=== PATIENT | male | born 1960 | race American Indian/Alaskan Native ===

== ENCOUNTER 2017-03-29 05:49 | Inpatient (IN) | payer MEDICAID ==
[2017-03-29 05:50] VITALS: BMI 31.8
[2017-03-29] MEDS ORDERED: Magnesium Hydroxide Susp 30 ml UD PO PRN (06:46)
[2017-03-29] MEDS ORDERED: DiphenhydrAMINE 50 mg/ml Inj IM PRN (06:46)
--- NOTE | 2017-03-29 07:03 | ED PDOC ---
Psych Transfer Clearance - Clearance Statement Clearance Statement: Reviewed vital signs, lab results and transfer papers. Patient clinically stable for psychiatric admission.
--- NOTE | 2017-03-29 07:07 | PCM.BM ---
<Mariposa Rodriguez - Last Filed: 03/29/17 07:05> Treatment Plan Problems - Problems identified on initial assessmt hopelessness/helplessness Date Initiated: 03/29/17 Time Initiated: 07:05 Assessment reference: NA Status: Active feeling of worthlessness Date Initiated: 03/29/17 Time Initiated: 07:06 Assessment reference: NA Status: Active Treatment assets and liabiliti Patient Assests: cooperative, ADL independent, negotiates basic needs, cognitively intact Patient Liabilities: physical pain, substance abuse, medical problems - Milieu Protocol Maintain good personal hygiene: daily Encourage regular showers, daily Remind patient to perform daily oral care, daily Assist patient to perform ADL's Maintain personal safety: every shift Educate patient to report safety concerns to staff, every shift Monitor environment for contraband/sharps Medication safety: Monitor for expected outcome, potential side effects: every shift, Assess barriers to learning: every shift, Assess readiness for medication education: every shift <Meagan Goldstein - Last Filed: 03/29/17 10:41> - Diagnosis (1) Schizoaffective disorder Status: Chronic Interventions: Medication management, Individual and group therapy, psychoeducation 03/29/17 10 :41 <Primitivo Arizmendi - Last Filed: 03/30/17 09:34> Family Contact Family contact: Patient declines to allow family contact at present (Pt resides with sister, but is not agreeable to have staff contact her.) - Goals for Treatment Patient goals for treatment: Pt wants to feel less depressed and safe. Discharge/Continuing Care - Education Needs Education Needs: Patient Medication, Patient Coping Skills, Patient Anger Management skills, Patient Community resources - Discharge Discharge Criteria: Tolerates medication w/o severe side effects, Free of Suicidal thoughts, Free of agitation, Normal sleep pattern, No longer exhibiting s/s of withdrawal Discharge to:: Home, With Family - Treatment Team Participation Discussed with Family/SO: No Was Patient/Family/SO present at Treatment Team Meeting: Yes
[2017-03-29 07:11] VITALS: O2SAT 98
--- NOTE | 2017-03-29 10:46 | PCM.PSYCH ---
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 Reports non-compliance with medications in the context of chronic alcohol abuse (drinks 2-3 pints/day). He gave conflicting stories to which medications he has recently taken. As per chart, he was discharged from [facility] in December 2016 on Seroquel 300 mg PO HS, Zoloft 200 mg, Trazodnoe 100 mg PO HS. He reports vague suicidal ideation, with no clear plan, but will not contract for safety. +AH of his decreased brother. Denies delusions/paranoia. +Hopelessness. +Sleep/appetite disturbances. Patient currently feels "shakey" from not drinking ETOH and just received an Ativan PRN. PMHx: Sickle cell anemia, AVN both hips, Hyper IgE syndrome, S/p R nephrectomy secondary to renal cell carcinoma PPHx: Multiple past psychiatric hospitalization for depression, etoh abuse, most recent diagnosis: schizoaffective disorder. Patient may has history of malingering to obtain inpatient hospitalizations. Not compliant with outpatient tx. FHx: Brother commited suicide SHx: Lives w/ sister and nieces. . On disability ALL: Augmentin, Ketorolac, PCN, tomato Current Medications: Active Medications Generic Name Dose Route Start Last Admin Trade Name Freq PRN Reason Stop Dose Admin Acetaminophen 650 mg 03/29/17 06:46 Tylenol 325mg Tab PO Q4 PRN pain 4-7 Chlordiazepoxide 50 mg 03/29/17 17:00 Librium PO Q8 GOPAL Diphenhydramine HCl 50 mg 03/29/17 06:46 Benadryl IM Q6 PRN Extrapyramidal S/S Unable PO Diphenhydramine HCl 50 mg 03/29/17 06:46 Benadryl PO Q6 PRN Extrapyramidal Symptoms Diphenhydramine HCl 50 mg 03/29/17 06:46 Benadryl PO HS PRN Sleep Folic Acid 1 mg 03/29/17 10:45 Folic Acid PO DAILY GOPAL Haloperidol 5 mg 03/29/17 06:46 Haldol PO Q4 PRN Agitation Haloperidol Lactate 5 mg 03/29/17 06:46 Haldol IM Q4 PRN Agitation, Unable to Take PO Lorazepam 2 mg 03/29/17 06:46 Ativan IM Q4 PRN Anxiety/Agitation,Unable PO Lorazepam 2 mg 03/29/17 06:46 03/29/17 08:45 Ativan PO 2 mg Q4 PRN Administration Anxiety/Agitation Magnesium Hydroxide 30 ml 03/29/17 06:46 Milk Of Magnesia PO HS PRN Constipation Past Psychiatric History - Past Psychiatric History Previous Treatment History: Inpatient Pertinent Medical Hx (Current Medical&Sleep Prob, Allergies): Allergies Allergy/AdvReac Type Severity Reaction Status Date / Time amoxicillin trihydrate Allergy RASH Verified 03/28/17 20:19 [From Augmentin] ketorolac tromethamine Allergy RASH Verified 03/28/17 20:19 [From Toradol] Penicillins Allergy RASH Verified 03/28/17 20:19 potassium clavulanate Allergy RASH Verified 03/28/17 20:19 [From Augmentin] tomato Allergy Verified 03/28/17 20:19 Folic Acid 1 mg PO DAILY #30 tab 02/24/16 HYDROmorphone [Dilaudid] 4 mg PO Q6 #14 tab 02/24/16 [place] Carbonate [[place] Carbonate 150MG] 450 mg PO BID 14 Days cap 02/24/16 QUEtiapine [SEROquel] 400 mg PO BID 14 Days tab 02/24/16 Zolpidem [Ambien] 5 mg PO HS PRN #0 tab 02/24/16 oxyCODONE/Acetaminophen [Percocet 5/325 mg Tab] 1 tab PO Q6 PRN #14 tab Benztropine [Cogentin] 1 mg PO BID #60 tab 08/10/16 Divalproex [Depakote DR(*BID*)] 500 mg PO BID #60 tcp 08/10/16 Haloperidol [Haldol] 10 mg PO BID #60 tab 08/10/16 Gabapentin [Neurontin] 600 mg PO BID #60 tab 10/27/16 Mirtazapine [Remeron] 30 mg PO HS #30 tab 10/27/16 fluPHENAZine [Prolixin] 10 mg PO BID #60 tab 10/27/16 traZODone [Desyrel] 100 mg PO HS PRN #30 tab 10/27/16 Albuterol/Ipratropium [Duoneb 3 mg/0.5 mg (3 ml) UD] 3 ml INH RQ6 PRN #1 Pantoprazole [Protonix EC Tab] 40 mg PO DAILY #14 ect 12/22/16 Sertraline [Zoloft] 100 mg PO BID #30 tab 12/22/16 Review of Systems - Psychiatric Psychiatric: As Per HPI, Abnormal Sleep Pattern, Auditory Hallucinations, Change in Appetite, Depression, Hopelessness, Suicidal Ideation Mental Status Examination - Personal Presentation Personal Presentation: Looks older than stated age - Affect Affect: Constricted - Motor Activity Motor Activity: Calm - Reliability in Providing Information Reliability in Providing Information: Other (Poor, due to intentional withholding of information, likely lying) - Speech Speech: Organized - Mood Mood: Depressed - Formal Thought Process Formal Thought Process: Hallucinations - Hallucinations/Delusions Hallucinations: Auditory - Obsessions/Compulsions Obsessions: No Compulsions: No - Cognitive Functions Orientation: Person, Place, Situation, Time Sensorium: Alert, Drowsy Attention/Concentration: Attentive Judgement: Imparied, as evidence by: Other (chronic poor judgement re: substance abuse, may be malingering) Memory: Recent intact, as evidence by: Ability to recall events of the day - Risk Risk: Suicidal, Diminished functioning DSM 5 DX - DSM 5 DSM 5 Diagnosis: Schizoaffective Disorder - Recommended/Plan of Treatment Treatment Recommendations and Plan of Treatment: Schizoaffective Disorder, r/o MDD w/ psychosis, r/o Bipolar disorder w/ psychosis; r/o seeking hospitalization for secondary gain -Admit to psychiatry -Restart Zoloft 200 mg PO Daily, Seroquel 300 mg PO HS -Librium for ETOH w/ drawal -Medicine consult -Individual and group therapy -Obtain collateral history -Disposition planning -1:1 for safety/ suicide precautions Projected ELOS: 3-5 days Discharge Plan and Discharge Criteria: Discharge when psychiatrically stable
--- NOTE | 2017-03-29 15:05 | CP.PCM.CON ---
History of Present Illness - History of Present Illness History of Present Illness: Reason for Medicine Consult: As per Hospital Protocol HPI: 56 y/o overweight male patient with PMH of Sickle cell anemia, AVN both hips, Hyper IgE syndrome, S/p R nephrectomy secondary to renal cell carcinoma in 2013 , depression, and schizoaffective disorder comes to the hospital for psych and medical evaluation. As per pt, he feels pain everywhere in his body, he has AVN of hips since then he is depended on pain medications and unable to ambulate without crutches. pt is a chronic alcohol abuser, and wants something to help with his pain. He reports vague suicidal ideation, with no clear plan. Patient currently feels "shakey" from not drinking ETOH and just received an Ativan PRN. pt denies any fever, chills, n/v, chest pain, SOB or abdo pain. PMHx: Sickle cell anemia, AVN both hips, Hyper IgE syndrome, S/p R nephrectomy secondary to renal cell carcinoma PPHx: Multiple past psychiatric hospitalization for depression, etoh abuse, most recent diagnosis: schizoaffective disorder. Patient may has history of malingering to obtain inpatient hospitalizations. Not compliant with outpatient tx. FHx: Brother commited suicide, DAD- HTN, MOM- head tumor SHx: Alcohol use everyday, 6cig/day smoking, no illicit drug use, Lives w/ sister and nieces. . On disability Allg: PCN and toradol VS: reviewed Review of Systems - Review of Systems All systems: reviewed and no additional remarkable complaints except Review of Systems: pain - Constitutional Constitutional: absent: Fever - EENT Eyes: As Per HPI - Cardiovascular Cardiovascular: absent: Chest Pain, Dyspnea, Edema - Respiratory Respiratory: absent: Cough, Dyspnea, Hemoptysis, Wheezing - Gastrointestinal Gastrointestinal: absent: Abdominal Pain - Genitourinary Genitourinary: absent: Change in Urinary Stream, Flank Pain, Hematuria - Musculoskeletal Musculoskeletal: As Per HPI - Integumentary Integumentary: Change in Pigmentation - Neurological Neurological: absent: Abnormal Hearing, Abnormal Speech Past Patient History - Infectious Disease Hx of Infectious Diseases: None - Tetanus Immunizations Tetanus Immunization: Unknown - Past Medical History & Family History Past Medical History?: Yes - Past Social History Smoking Status: Heavy Smoker > 10 Cigarettes Daily - CARDIAC Hx Hypertension: Yes - PULMONARY Hx Pneumonia: Yes - NEUROLOGICAL Hx Seizures: Yes (ETOH related) - HEENT Hx HEENT Problems: Yes Other/Comment: Uses glasses for far/near sight. - RENAL Hx Chronic Kidney Disease: Yes Hx Kidney Stones: Yes - ENDOCRINE/METABOLIC Hx Endocrine Disorders: No - HEMATOLOGICAL/ONCOLOGICAL Hx Blood Disorders: Yes Hx Sickle Cell Disease: Yes - INTEGUMENTARY Hx Dermatological Problems: No Other/Comment: Hyper IgE syndrome - MUSCULOSKELETAL/RHEUMATOLOGICAL Hx Musculoskeletal Disorders: Yes Hx Arthritis: Yes Hx Falls: Yes Hx Fractures: Yes (Left Femur FX/ Repair.) - GASTROINTESTINAL Hx Gastrointestinal Disorders: Yes Hx Pancreatitis: Yes - GENITOURINARY/GYNECOLOGICAL Hx Genitourinary Disorders: No Hx Sexually Transmitted Disorders: No - PSYCHIATRIC Hx Substance Use: No - SURGICAL HISTORY Hx Surgeries: Yes Hx Kidney Transplant: (right) Hx Orthopedic Surgery: Yes Other/Comment: R kidney cancer removed September 2015 - ANESTHESIA Hx Anesthesia: Yes Hx Anesthesia Reactions: Yes Hx Malignant Hyperthermia: No Meds Allergies/Adverse Reactions: Allergies Allergy/AdvReac Type Severity Reaction Status Date / Time amoxicillin trihydrate Allergy RASH Verified 03/28/17 20:19 [From Augmentin] ketorolac tromethamine Allergy RASH Verified 03/28/17 20:19 [From Toradol] Penicillins Allergy RASH Verified 03/28/17 20:19 potassium clavulanate Allergy RASH Verified 03/28/17 20:19 [From Augmentin] tomato Allergy Verified 03/28/17 20:19 - Medications Medications: Current Medications Acetaminophen (Tylenol 325mg Tab) 650 mg PO Q4 PRN PRN Reason: pain 4-7 Chlordiazepoxide (Librium) 25 mg PO Q6 [facility] Last Admin: 03/29/17 13:06 Dose: 25 mg Diphenhydramine HCl (Benadryl) 50 mg IM Q6 PRN PRN Reason: Extrapyramidal S/S Unable PO Diphenhydramine HCl (Benadryl) 50 mg PO Q6 PRN PRN Reason: Extrapyramidal Symptoms Diphenhydramine HCl (Benadryl) 50 mg PO HS PRN PRN Reason: Sleep Folic Acid (Folic Acid) 1 mg PO DAILY [facility] Last Admin: 03/29/17 12:32 Dose: 1 mg Haloperidol (Haldol) 5 mg PO Q4 PRN PRN Reason: Agitation Haloperidol Lactate (Haldol) 5 mg IM Q4 PRN PRN Reason: Agitation, Unable to Take PO Lorazepam (Ativan) 2 mg IM Q4 PRN PRN Reason: Anxiety/Agitation,Unable PO Lorazepam (Ativan) 2 mg PO Q4 PRN PRN Reason: Anxiety/Agitation Last Admin: 03/29/17 08:45 Dose: 2 mg Magnesium Hydroxide (Milk Of Magnesia) 30 ml PO HS PRN PRN Reason: Constipation Quetiapine Fumarate (Seroquel) 300 mg PO HS GOPAL Sertraline HCl (Zoloft) 200 mg PO DAILY GOPAL Physical Exam - Head Exam Head Exam: ATRAUMATIC, NORMAL INSPECTION, NORMOCEPHALIC - Eye Exam Eye Exam: EOMI, Normal appearance, PERRL Pupil Exam: NORMAL ACCOMODATION, PERRL - ENT Exam ENT Exam: Mucous Membranes Moist, Normal Exam - Neck Exam Neck exam: Positive for: Normal Inspection. Negative for: Tenderness - Respiratory Exam Respiratory Exam: Clear to Auscultation Bilateral, NORMAL BREATHING PATTERN - Cardiovascular Exam Cardiovascular Exam: REGULAR RHYTHM, +S1, +S2 - GI/Abdominal Exam GI & Abdominal Exam: Normal Bowel Sounds, Soft. absent: Distended, Guarding, Tenderness - Extremities Exam Extremities exam: Positive for: calf tenderness, normal capillary refill, pedal pulses present. Negative for: joint swelling, pedal edema Additional comments: b/l hip tenderness - Back Exam Back exam: absent: CVA tenderness (L), CVA tenderness (R) - Neurological Exam Neurological exam: Alert, CN II-XII Intact, Oriented x3 - Psychiatric Exam Psychiatric exam: Flat Affect - Skin Skin Exam: Dry, Intact, Normal Color, Warm Results - Vital Signs Recent Vital Signs: Last Vital Signs Temp 98 F 03/29/17 06:41 Pulse 90 03/29/17 08:00 Resp 20 03/29/17 08:00 BP 156/98 H 03/29/17 06:41 Pulse Ox 98 03/29/17 06:41 Assessment & Plan - Assessment and Plan (Free Text) Assessment: A/P: 56 y/o overweight male patient with PMH of Sickle cell anemia, AVN both hips, Hyper IgE syndrome, S/p R nephrectomy secondary to renal cell carcinoma in 2013 , depression, and schizoaffective disorder comes to the hospital for psych and medical evaluation. HTN - chronic, uncontrolled - Continue home med Vasotec 20 mg PO daily, as per pt Sickle cell anemia / AVN b/l hips - continue home meds - Percocet 10mg Q4H PRN - Folic acid 1mg PO daily Hyper IgE syndrome/ itchy skin/ face rash - Benadryl 50mg PO Q6 PRN for itchy skin - Topical Lidex 0.05% cream BID PRN for face eczema Chronic Alcohol use - Librium 25mg PO Q6H Depression - continue management as per psych schizoaffective disorder -continue management as per psych S/p right right nephrectomy - localized RCC - Resolved DVT ppx - SCD - Date & Time Date: 03/29/17 Time: 14:20
[2017-03-29] MEDS ORDERED: Oxycodone/Acetaminophen 5/325 mg Tab PO PRN (16:04)
[2017-03-29] MEDS: Oxycodone/Acetaminophen 5/325 mg Tab PO PRN ×2 (17:21→22:19)
[2017-03-30] MEDS: Oxycodone/Acetaminophen 5/325 mg Tab PO PRN ×3 (02:55→16:19)
[2017-03-30 07:17] LABS: T4 7.98 ug/dl (5.5-11.0)
[2017-03-30 07:31] LABS: THYROID STIMULATING HORMONE 2.2 mIU/ML (0.46-4.68)
[2017-03-30 08:22] LABS: IRON 91 ug/dL (49-181)
--- NOTE | 2017-03-30 08:30 | PCM.PYCHPN ---
Psychiatric Progress Note - Psychiatric Progress Note Patient seen today, length of contact: Patient evaluated, case discussed with team, chart reviewed, 35 min Patient Chief Complaint: "I'm depressed" Problems Identified/Issues Discussed: Patient reports that he continues to feel depressed. He reports that he last heard auditory hallucinations last night. He was able to contract for safety and denied current ideation to harm self or others. He was focused on prolonging his hospitalization, when told he will likely be discharged in a few days. He denies ETOH withdrawal symptoms. We discussed continued titration of Seroquel and continued tapering of Librium. Patient reports that he was previously on Seroquel 300 mg PO Q12. No adverse effects to medications noted. DSM 5 Symptoms Update: Schizoaffective Disorder, Alcohol Use Disorder Medication Change: Yes (Increase Seroquel to 100 mg PO AM/ 300 mg PO HS) Medical Record Reviewed: Yes Consults ordered or reviewed: Medicine consult appreciated Mental Status Examination - Cognitive Function Orientation: Person, Place, Situation, Time Memory: Intact Attention: WNL Concentration: WNL Association: WNL Fund of Knowledge: WNL - Mood Mood: Depressed - Affect Affect: Constricted - Speech Speech: Appropriate - Formal Thought Process Formal Thought Process: Hallucinations Psychotic Thoughts and Behaviors: +AH - Suicidal Ideation Suicidal Ideation: No - Homicidal Ideation Homicidal Ideation: No Goal/Treatment Plan - Goal/Treatment Plan Need for Continued Stay: Remain at risks for inpatient hospitalization, Severe depression anxiety, Discharge may exacerbated symptoms Progress Toward Problem(s) and Goals/Treatment Plan: Alcohol Use Disorder, Schizoaffective Disorder, r/o MDD w/ psychosis, r/o Bipolar disorder w/ psychosis; r/o seeking hospitalization for secondary gain -Continue Zoloft 200 mg PO Daily -Increase Seroquel to 100 mg AM/300 mg PO HS -Taper Librium for ETOH w/ drawal, no current signs/symptoms of ETOH w/drawal -Medicine consult appreciated -Individual and group therapy -Obtain collateral history -Disposition planning -Discontinue 1:1 as patient can contract for safety at this time -Psychoeducation provided re: importance of compliance with medications, treatment and ETOH cessation -Patient declined nicotine replacement Estimated Date of D/C: 04/01/17 - Smoking Cessation Smoking Cessation Initiated: No Reason for not providing: Patient declined
[2017-03-30 13:21] LABS: FOLATE 8.8 ng/mL
[2017-03-31] MEDS: Oxycodone/Acetaminophen 5/325 mg Tab PO PRN ×4 (00:16→16:57)
--- NOTE | 2017-03-31 08:25 | PCM.PYCHPN ---
Psychiatric Progress Note - Psychiatric Progress Note Patient seen today, length of contact: Patient evaluated, case discussed with team, chart reviewed, 35 min Patient Chief Complaint: "I'm depressed" Problems Identified/Issues Discussed: Patient reports that his mood is improving. No current ideation to harm self. No current auditory hallucinations. No signs/symptoms of ETOH w/drawal. No adverse effects to medications noted. Medication Change: Yes (Modify Seroquel to 200 mg PO Q12, Taper Librium) Medical Record Reviewed: Yes Consults ordered or reviewed: Medicine consult, Dietary consult Mental Status Examination - Cognitive Function Orientation: Person, Place, Situation, Time Memory: Intact Attention: WNL Concentration: WNL Association: WNL Fund of Knowledge: WNL - Mood Mood: Depressed - Affect Affect: Constricted - Speech Speech: Appropriate - Formal Thought Process Formal Thought Process: No Impairment Psychotic Thoughts and Behaviors: No AH/VH/paranoia/delusions - Suicidal Ideation Suicidal Ideation: No - Homicidal Ideation Homicidal Ideation: No Goal/Treatment Plan - Goal/Treatment Plan Need for Continued Stay: Remain at risks for inpatient hospitalization, Severe depression anxiety, Discharge may exacerbated symptoms Progress Toward Problem(s) and Goals/Treatment Plan: Alcohol Use Disorder, Schizoaffective Disorder, r/o MDD w/ psychosis, r/o Bipolar disorder w/ psychosis; r/o seeking hospitalization for secondary gain; patient is improving clinically. -Continue Zoloft 200 mg PO Daily -Modify Seroquel to 200 mg PO Q12 -Continue Trazodone 50 mg PO HS -Taper Librium for ETOH w/ drawal, no current signs/symptoms of ETOH w/drawal -Medicine consult appreciated -Dietary consult appreciated -Individual and group therapy -Obtain collateral history -Disposition planning- likely discharge tomorrow if patient continues to improve clinically -No 1:1 indicated -Psychoeducation provided re: importance of compliance with medications, treatment and ETOH cessation -Patient declined nicotine replacement Estimated Date of D/C: 04/01/17 - Smoking Cessation Smoking Cessation Initiated: No Reason for not providing: Patient declined
[2017-03-31] MEDS ORDERED: Petrolatum UD PAK TOP PRN (14:23)
[2017-04-01] MEDS: Oxycodone/Acetaminophen 5/325 mg Tab PO PRN ×2 (03:29→08:21)
[2017-04-01 06:57] VITALS: BP 94/56; PULSE 82; RESP 21; TEMP 97
--- NOTE | 2017-04-01 08:58 | PCM.PYCHDC ---
Mental Status Examination - Mental Status Examination Orientation: Person, Place, Situation, Time Memory: Intact Mood: Neutral Affect: Broad Speech: Appropriate Attention: WNL Concentration: WNL Association: WNL Fund of Knowledge: WNL Formal Thought Process: No Impairment Description of patient's judgement and insight: Fair I/J Psychotic Thoughts and Behaviors: No AH/VH/paranoia/delusions Suicidal Ideation: No Current Homicidal Ideation?: No Discharge Summary - Discharge Note Reason for Hospitalization: HPI: 56 yo AAM, , unemployed, on disability and living with his sister and 2 nieces, aged 17 and 19, 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 Reports non-compliance with medications in the context of chronic alcohol abuse (drinks 2-3 pints/day). He gave conflicting stories to which medications he has recently taken. As per chart, he was discharged from [facility] in December 2016 on Seroquel 300 mg PO HS, Zoloft 200 mg, Trazodnoe 100 mg PO HS. He reports vague suicidal ideation, with no clear plan, but will not contract for safety. +AH of his decreased brother. Denies delusions/paranoia. +Hopelessness. +Sleep/appetite disturbances. Patient currently feels "shakey" from not drinking ETOH and just received an Ativan PRN. PMHx: Sickle cell anemia, AVN both hips, Hyper IgE syndrome, S/p R nephrectomy secondary to renal cell carcinoma PPHx: Multiple past psychiatric hospitalization for depression, etoh abuse, most recent diagnosis: schizoaffective disorder. Patient may has history of malingering to obtain inpatient hospitalizations. Not compliant with outpatient tx. FHx: Brother commited suicide SHx: Lives w/ sister and nieces. . On disability ALL: Augmentin, Ketorolac, PCN, tomato Consultations:: List each consultation separately and include: 1. Reason for request. 2. Findings. 3. Follow-up Consultations: Medicine consult, Dietary consult Summary of Hospital Course include:: 1. Description of specific treatment plan utilized for patients during their course of treatmen. 2. Summarize the time- course for resolution of acute symptoms and/or regressed behaviors. 3. Describe issues identified and worked on during hospitalization. 4. Describe medication utilized. 5. Describe medical problems identified and treated. 6. Reassessment of suicide risk Summary of Hospital Course: Patient admitted to the psychiatry unit. Individual and group therapy were provided. The patient was stabilized on Zoloft 200 mg PO Daily, Seroquel 200 mg PO BID and Trazodone 50 mg PO HS. He is no longer an acute danger to himself. NO AH/VH/paranoia/delusions/SI/HI. - Diagnosis (1) Schizoaffective disorder Current Visit: No Status: Chronic - Final Diagnosis (DSM 5) Condition upon Discharge: STABLE DSM 5: Alcohol Use Disorder, Schizoaffective Disorder Disposition: HOME/ ROUTINE Follow-up Treatment Plan: Alcohol Use Disorder, Schizoaffective Disorder, r/o MDD w/ psychosis, r/o Bipolar disorder w/ psychosis; r/o seeking hospitalization for secondary gain; patient is now psychiatrically stable for discharge. -Continue Zoloft 200 mg PO Daily -Continue Seroquel 200 mg PO Q12 -Continue Trazodone 50 mg PO HS -Stop Librium for ETOH w/ drawal, no current signs/symptoms of ETOH w/drawal -Medicine consult appreciated -Dietary consult appreciated -Individual and group therapy -Psychoeducation provided re: importance of compliance with medications, treatment and ETOH cessation -Patient declined nicotine replacement Prescriptions/Medication Reconciliation: Enalapril Maleate [Vasotec] 20 mg PO DAILY #30 tab QUEtiapine [SEROquel] 200 mg PO Q12 #60 tab Sertraline [Zoloft] 200 mg PO DAILY #60 tab traZODone [Desyrel] 50 mg PO HS #30 tab - Smoking Cessation Smoking Cessation Medication prescribed: No Reason for not providing: Patient declined - Antipsychotic Medications Pt discharged on 2 or more routine antipsychotic medications: No
== END 2017-04-01 13:49 | disposition home or self-care (01) | DRG 430 ==
LOC: H.ER 05:49 → H.STEP 06:00
PROVIDERS: ADMIT Psychiatry & Neurology Psychiatry; ATTEND Psychiatry & Neurology Psychiatry
PROC: GZHZZZZ Group Psychotherapy (ICD-10-PCS; principal; 2017-03-29)
PROC: HZ56ZZZ Individual Psychotherapy for Substance Abuse Treatment, Psychoeducation (ICD-10-PCS; 2017-03-29)
DX: F25.9 Schizoaffective disorder, unspecified (principal); D82.4 Hyperimmunoglobulin E [IgE] syndrome; D57.1 Sickle-cell disease without crisis; R45.851 Suicidal ideations; M87.9 Osteonecrosis, unspecified; Z91.14 Patient's other noncompliance with medication regimen; Z88.0 Allergy status to penicillin; Z91.19 Patient's noncompliance with other medical treatment and regimen; Z85.528 Personal history of other malignant neoplasm of kidney; E66.3 Overweight; Z68.27 Body mass index [BMI] 27.0-27.9, adult; F17.210 Nicotine dependence, cigarettes, uncomplicated; L30.9 Dermatitis, unspecified; Z72.89 Other problems related to lifestyle

== ENCOUNTER 2018-03-26 06:27 | Inpatient (IN) | payer MEDICAID ==
--- NOTE | 2018-03-26 08:32 | ED PDOC ---
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 Patient expressed suicidal thoughts and states he hears voices because of brother's anniversary. PDM: non provided Past Medical History Reviewed: Historical Data, Nursing Documentation, Vital Signs Vital Signs: Last Vital Signs Temp 98.2 F 03/26/18 06:46 Pulse 101 H 03/26/18 06:46 Resp 18 03/26/18 06:46 BP 143/75 03/26/18 06:46 Pulse Ox 98 03/26/18 06:46 - Medical History PMH: Anxiety, Arthritis, Bipolar Disorder, Depression, Fractures (Left Femur FX / Repair.), HTN, Kidney Stones, Pancreatitis, Personality Disorder, Pneumonia, Chronic Kidney Disease, Seizures (ETOH related), Sickle Cell Disease Denies: Diabetes, Hepatitis, HIV, Schizophrenia, Sexually Transmitted Disease - Surgical History Surgical History: No Surg Hx - Family History Family History: States: Unknown Family Hx - Social History Current smoker - smoking cessation education provided: Yes (Heavy smoker) Alcohol: Social - Immunization History Hx Tetanus Toxoid Vaccination: Yes Hx Influenza Vaccination: Yes Hx Pneumococcal Vaccination: Yes - Home Medications Home Medications: Ambulatory Orders Medication Instructions Recorded Folic Acid 1 mg PO DAILY #30 tab 02/24/16 QUEtiapine [SEROquel] 200 mg PO Q12 #60 tab 04/01/17 Sertraline [Zoloft] 200 mg PO DAILY #60 tab 04/01/17 traZODone [Desyrel] 50 mg PO HS #30 tab 04/01/17 Divalproex [Depakote DR] 500 mg PO BID #60 tcp 02/23/18 Enalapril Maleate [Vasotec] 20 mg PO DAILY #30 tab 02/23/18 QUEtiapine [SEROquel] 200 mg PO HS #30 tab 02/23/18 Sertraline [Zoloft] 100 mg PO DAILY #30 tab 02/23/18 traZODone [Desyrel] 100 mg PO HS #30 tab 02/23/18 - Allergies Allergies/Adverse Reactions: Allergies Allergy/AdvReac Type Severity Reaction Status Date / Time amoxicillin trihydrate Allergy RASH Verified 03/26/18 06:45 [From Augmentin] FISH Allergy RASH Verified 03/26/18 06:45 ketorolac tromethamine Allergy RASH Verified 03/26/18 06:45 [From Toradol] Penicillins Allergy RASH Verified 03/26/18 06:45 potassium clavulanate Allergy RASH Verified 03/26/18 06:45 [From Augmentin] Review of Systems ROS Statement: Except As Marked, All Systems Reviewed And Found Negative Psych: Positive for: Other (Suicidal thoughts and hearing voices) Physical Exam - Reviewed Nursing Documentation Reviewed: Yes Vital Signs Reviewed: Yes - Physical Exam Appears: Positive for: No Acute Distress Head Exam: Positive for: ATRAUMATIC, NORMOCEPHALIC Skin: Positive for: Normal Color, Warm, Dry Eye Exam: Positive for: Normal appearance, EOMI, PERRL Neck: Positive for: Normal, Painless ROM, Supple Cardiovascular/Chest: Positive for: Regular Rate, Rhythm. Negative for: Murmur Respiratory: Positive for: Normal Breath Sounds. Negative for: Respiratory Distress Gastrointestinal/Abdominal: Positive for: Normal Exam, Soft. Negative for: Tenderness Back: Positive for: Normal Inspection. Negative for: L CVA Tenderness, R CVA Tenderness Extremity: Positive for: Normal ROM. Negative for: Tenderness, Swelling Neurologic/Psych: Positive for: Alert, Oriented (x3) - Laboratory Results Result Diagrams: 03/26/18 09:57 03/26/18 09:57 - ECG O2 Sat by Pulse Oximetry: 98 (RA) Pulse Ox Interpretation: Normal Medical Decision Making Medical Decision Making: Time: 825 Initial Plan: --EKG --Alcohol Serum --CMP --Urine drug screen --Troponin I --CBC --Chest x-ray 914 Chest x-ray FINDINGS: LUNGS: Mild chronic interstitial changes are seen. Heart is unchanged. No appreciable new focal infiltrate, pneumothorax, or pleural effusion is seen. PLEURA: No significant pleural effusion identified, no pneumothorax apparent. CARDIOVASCULAR: Normal. OSSEOUS STRUCTURES: No significant abnormalities. VISUALIZED UPPER ABDOMEN: Normal. OTHER FINDINGS: None. IMPRESSION: Limited study due to obliquity of the radiograph. No appreciable focal infiltrate Medically stable for psychiatric admission ----- Scribe Attestation: Documented by Maria E Amaya, acting as a scribe for John Paul Banda MD. Provider Scribe Attestation: All medical record entries made by the Scribe were at my direction and personally dictated by me. I have reviewed the chart and agree that the record accurately reflects my personal performance of the history, physical exam, medical decision making, and the department course for this patient. I have also personally directed, reviewed, and agree with the discharge instructions and disposition. Disposition - Clinical Impression Clinical Impression: Schizoaffective disorder - Patient ED Disposition Is Patient to be Admitted: Yes - Disposition Disposition Time: 12:22 Condition: FAIR Forms: [employer] ([place]) - Pt Status Changed To: Hospital Disposition Of: Inpatient - Admit Certification Admit to Inpatient:: After my assessment, the patient will require hospitalization for at least two midnights. This is because of the severity of symptoms shown, intensity of services needed, and/or the medical risk in this patient being treated as an outpatient. - POA Present On Arrival: None
--- NOTE | 2018-03-26 09:17 | RAD ---
Date of service: 03/26/2018 HISTORY: cough COMPARISON: 02/22/2016 FINDINGS: LUNGS: Mild chronic interstitial changes are seen. Heart is unchanged. No appreciable new focal infiltrate, pneumothorax, or pleural effusion is seen. PLEURA: No significant pleural effusion identified, no pneumothorax apparent. CARDIOVASCULAR: Normal. OSSEOUS STRUCTURES: No significant abnormalities. VISUALIZED UPPER ABDOMEN: Normal. OTHER FINDINGS: None. IMPRESSION: Limited study due to obliquity of the radiograph. No appreciable focal infiltrate
[2018-03-26 10:10] LABS: BASO # 0.1 K/uL (0.0-0.2); BASO % 0.8 % (0.0-2.0); EOS # 0.2 K/uL (0.0-0.7); EOS % 1.8 % (0.0-4.0); HEMOGLOBIN 12.8 g/dL (12.0-18.0); LYMPH % 16.8 % (20.0-40.0); MEAN CELL VOLUME 88.5 fl (80.0-94.0); MEAN CORPUSCULAR HEMOGLOBIN 29.6 pg (27.0-31.0); MEAN CORPUSCULAR HGB CONC 33.4 g/dL (33.0-37.0); MEAN PLATELET VOLUME 7.9 fl (7.2-11.7); MONO # 1.7 K/uL (0.0-0.8); MONO % 14.9 % (0.0-10.0); NEUT # 7.7 K/uL (1.8-7.0); NEUT % 65.7 % (50.0-75.0); NRBC % 0.1 % (0.0-0.0); RBC 4.33 Mil/uL (4.40-5.90); RED CELL DISTRIBUTION WIDTH 14.7 % (11.5-14.5); WHITE BLOOD COUNT 11.7 K/uL (4.8-10.8)
[2018-03-26 10:26] LABS: ALB/GLOB RATIO 1.1 (1.0-2.1); ALT/SGPT 38 U/L (21-72); AST/SGOT 34 U/L (17-59); BLOOD UREA NITROGEN 14 mg/dl (9-20); CALCIUM 8.7 mg/dL (8.4-10.2); GFR NON-AFRICAN AMERICAN > 60
[2018-03-26 12:45] LABS: BARBITURATES, UR NEGATIVE (NEGATIVE)
[2018-03-26 12:46] LABS: BENZODIAZEPINES, UR POSITIVE (NEGATIVE); PHENCYCLIDINE, UR NEGATIVE (NEGATIVE)
[2018-03-26 13:04] LABS: OPIATES, UR POSITIVE (NEGATIVE)
[2018-03-26 13:47] VITALS: O2SAT 99
[2018-03-26 14:36] VITALS: BMI 29.9
[2018-03-26] MEDS: Multivitamin With Minerals Tab PO SCH (17:14)
[2018-03-26] MEDS ORDERED: Potassium Chloride 20 mEq ER Tab PO ONE (19:55)
--- NOTE | 2018-03-27 00:17 | PCM.BM ---
<IshaanFranklin colbert - Last Filed: 03/27/18 00:15> Treatment Plan Problems - Problems identified on initial assessmt Hopelessness/Helplessness Date Initiated: 03/27/18 Time Initiated: 00:15 Assessment reference: NA Status: Active Altered Sleeping Patterns Date Initiated: 03/27/18 Time Initiated: 00:15 Assessment reference: NA Status: Active Medication nonadherence Date Initiated: 03/27/18 Time Initiated: 00:16 Assessment reference: NA Status: Active Self Care Deficit Date Initiated: 03/27/18 Time Initiated: 00:16 Assessment reference: NA Status: Active Suicidal Ideation Date Initiated: 03/27/18 Time Initiated: 00:17 Assessment reference: NA Status: Active Defensive Coping Date Initiated: 03/27/18 Time Initiated: 00:17 Assessment reference: NA Status: Active Treatment assets and liabiliti Patient Assests: cooperative, self-reliant, ADL independent, negotiates basic needs, cognitively intact Patient Liabilities: live alone, financial problems, poor support system, substance abuse, medical problems - Milieu Protocol Maintain good personal hygiene: every shift Encourage regular showers, every shift Remind patient to perform daily oral care, every shift Assist patient to perform ADL's Maintain personal safety: daily Educate patient to report safety concerns to staff, daily Monitor environment for contraband/sharps Medication safety: Monitor for expected outcome, potential side effects: daily, Assess barriers to learning: daily, Assess readiness for medication education: daily <Meagan Goldstein - Last Filed: 03/27/18 11:27> - Diagnosis (1) Schizoaffective disorder Status: Chronic Interventions: Medication management, Individual and group therapy, Psychoeducation 03/27/18 11:28 (2) Alcohol abuse Status: Chronic Interventions: Medication management, Individual and group therapy, Psychoeducation 03/27/18 11:28 (3) Opioid abuse Status: Acute Interventions: Medication management, Individual and group therapy, Psychoeducation 03/27/18 11:28 <Primitivo Arizmendi - Last Filed: 03/29/18 09:54> Family Contact Family involvement: Famliy/SO not involved Family contact: Patient declines to allow family contact at present Family contact name: Pt denied. Family contact comment: Pt has a sister that he reportedly resides with in [place], yet is adamant that staff not contact her. - Goals for Treatment Patient goals for treatment: Pt reported he would like withdrawl syptoms to be resolved and his depression and hallucinations decreased. Discharge/Continuing Care - Education Needs Education Needs: Patient Medication, Patient Diagnosis/Disease Process, Patient Coping Skills, Patient Community resources, Patient Aftercare Safety Plan - Discharge Discharge Criteria: Tolerates medication w/o severe side effects, Free of Suicidal thoughts, Free of agitation, Normal sleep pattern, Reduction of target symptoms Discharge to:: Home - Treatment Team Participation Patient/Family/SO Statement: 03/29/18 09:49 Pt seen in treatment team on 03/27/18. Pt reported that he "got something bad" and that is why he came to the hospital. Pt later explained that he thinks that his cocaine was laced with heroin, but then reported he uses 4 bags of heroin daily. Pt reported he is currently experienced withdrawals, and wanted to rest. Discussed with Family/SO: No Was Patient/Family/SO present at Treatment Team Meeting: Yes
--- NOTE | 2018-03-27 06:43 | CARD ---
APPROVED REPORT Date of service: 03/26/2018 EKG Measurement Heart [id number] <Conclusion> Sinus rhythm with premature supraventricular complexes Septal infarct, age undetermined Abnormal ECG
[2018-03-27 07:03] LABS: LDL CHOLESTEROL 66 mg/dL (0-129)
[2018-03-27 07:09] LABS: T4 8.27 ug/dl (5.5-11.0)
[2018-03-27 07:12] LABS: BLOOD UREA NITROGEN 16 mg/dl (9-20); CALCIUM 9.1 mg/dL (8.4-10.2); GFR NON-AFRICAN AMERICAN > 60; HDL CHOLESTEROL 32 MG/DL (30-70)
[2018-03-27] MEDS: Multivitamin With Minerals Tab PO SCH (08:52)
[2018-03-27] MEDS ORDERED: Multivitamin With Minerals Tab PO SCH (09:00)
--- NOTE | 2018-03-27 11:31 | PCM.PSYCH ---
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 Denies delusions/paranoia. +Hopelessness. +Sleep/appetite disturbances. PMHx: Sickle cell anemia, AVN both hips, Hyper IgE syndrome, S/p R nephrectomy secondary to renal cell carcinoma PPHx: Multiple past psychiatric hospitalization for depression, etoh/opioid abuse, most recent diagnosis: schizoaffective disorder. Reports compliance w/ Zoloft, Depakote and Seroquel. FHx: Brother commited suicide SHx: Lives w/ sister and nieces. . On disability; drinks 2 pints of rum daily; used 4 bags of heroin per day; smokes 1ppd ALL: Augmentin, Ketorolac, PCN, tomato Current Medications: Active Medications Generic Name Dose Route Start Last Admin Trade Name Freq PRN Reason Stop Dose Admin Chlordiazepoxide 25 mg 03/26/18 22:00 03/27/18 09:55 Librium PO 25 mg Q6 GOPAL Administration Clonidine HCl 0.1 mg 03/27/18 01:00 03/27/18 08:51 Catapres PO 03/30/18 01:01 0.1 mg Q8 GOPAL Administration Enalapril Maleate 20 mg 03/27/18 09:00 03/27/18 08:52 Vasotec PO 20 mg DAILY GOPAL Administration Folic Acid 1 mg 03/26/18 17:00 03/27/18 08:52 Folic Acid PO 1 mg DAILY GOPAL Administration Loperamide HCl 2 mg 03/27/18 00:24 Imodium PO Q4 PRN After Loose Bowel Movement Lorazepam 1 mg 03/26/18 20:08 Ativan PO Q8 PRN Anxiety Multivitamins/Minerals 1 tab 03/26/18 17:00 03/27/18 08:52 Therapeutic-M Tab PO 1 tab DAILY GOPAL Administration Thiamine HCl 100 mg 03/26/18 17:00 03/27/18 08:52 Vitamin B1 Tab PO 100 mg DAILY GOPAL Administration Past Psychiatric History - Past Psychiatric History Previous Treatment History: Inpatient Pertinent Medical Hx (Current Medical&Sleep Prob, Allergies): Allergies Allergy/AdvReac Type Severity Reaction Status Date / Time amoxicillin trihydrate Allergy RASH Verified 03/26/18 06:45 [From Augmentin] FISH Allergy RASH Verified 03/26/18 06:45 ketorolac tromethamine Allergy RASH Verified 03/26/18 06:45 [From Toradol] Penicillins Allergy RASH Verified 03/26/18 06:45 potassium clavulanate Allergy RASH Verified 03/26/18 06:45 [From Augmentin] Folic Acid 1 mg PO DAILY #30 tab 02/24/16 QUEtiapine [SEROquel] 200 mg PO Q12 #60 tab 04/01/17 Sertraline [Zoloft] 200 mg PO DAILY #60 tab 04/01/17 Enalapril Maleate [Vasotec] 20 mg PO DAILY #30 tab 02/23/18 Divalproex [Depakote DR] 1,000 mg PO BID 03/26/18 Review of Systems - Psychiatric Psychiatric: As Per HPI, Abnormal Sleep Pattern, Anhedonia, Anxiety, Auditory Hallucinations, Behavioral Changes, Change in Appetite, Depression, Difficulty Concentrating, Hopelessness, Irritability, Mood Swings, Suicidal Ideation Mental Status Examination - Personal Presentation Personal Presentation: Looks older than stated age - Affect Affect: Constricted, Depressed - Motor Activity Motor Activity: Calm - Reliability in Providing Information Reliability in Providing Information: Fair - Speech Speech: Organized - Mood Mood: Depressed, Anxious - Formal Thought Process Formal Thought Process: No Impairment Additional comments: +AH yesterday, none current - Obsessions/Compulsions Obsessions: No Compulsions: No - Cognitive Functions Orientation: Person, Place, Situation, Time Sensorium: Alert Attention/Concentration: Attentive Judgement: Imparied, as evidence by: Poor judgement Memory: Recent intact, as evidence by: Ability to recall events of the day, Remote intact, as evidenced by: Abilit to recall sig. life events, Remote intact , as evidenced by: Ability to recall historical events - Risk Risk: Suicidal, Diminished functioning - Strength & Assets Inventory Strength & Assets Inventory: Cooperative DSM 5 DX - DSM 5 DSM 5 Diagnosis: Schizoaffective Disorder; Alcohol Use Disorder; Opioid Use Disorder - Recommended/Plan of Treatment Treatment Recommendations and Plan of Treatment: Schizoaffective Disorder; Alcohol Use Disorder; Opioid Use Disorder -Admit to psychiatry unit -Psychoeducation provided on the dangers of substance abuse -Restart Zoloft, Seroquel and Depakote -Medicine consult -PT -Ativan to prevent ETOH withdrawal -PRNs for opioid withdrawal symptoms -Disposition planning Projected ELOS: 5-10 days Discharge Plan and Discharge Criteria: Discharge when patient is psychiatrically stable - Smoking Cessation Smoking Cessation Initiated: No Reason for not providing: Patient declined
[2018-03-27] MEDS: Divalproex 500 mg DR(BID formulation) PO SCH (16:14)
[2018-03-27] MEDS ORDERED: Oxycodone/Acetaminophen 5/325 mg Tab PO PRN (20:30)
--- NOTE | 2018-03-27 20:45 | CP.PCM.CON ---
History of Present Illness - History of Present Illness History of Present Illness: 57 y/o male with PMH IGE syndrome, sickle Cell anemia, History of renal cell Ca s/p right nephrectomy, bilateral avascular necrosis of the hip, Wheelchair bound ,Bipolar disorder , schizophrenia,hypertension , history ETOH and drug abuse with multiple psychiatric admissions was brought in for crisis eval by the police for suicidal attempt . Patient admitted to psych unit and medicine consulted History obtained from patient . He appears to be with flat affect and tearful . He states that has been compliant with his psychiatric medications but is feeling very depressed lately and suicidal , thinkingg about jumping in front of a moving train. Patient states that nothing has no meaning any longer.He denies any visual and auditory hallucinations. Denies any chest pain , SOB, palpitations, PND, orthopnea, urinary symptoms . Complains of bouts of diarrhea today . Gives history of recent xanax , cocaine and heroine use. Denies any fever , choills, nausea, vomiting , abdominal pain, weight gain or weight loss. Allergies ; Toradol, amoxicillin , PCN PMH ; IGE syndrome, sickle Cell anemia, History of renal cell Ca s/p right nephrectomy, bilateral avascular necrosis of the hip, Wheelchair bound,Bipolar disorder , schizophrenia,hypertension Medications; Sertraline, Percoset , azelastine,Cetirizine,Depakote, zoloft Surgery ; right nephrectomy Family history ; Brother committed suicide Social history ; Lives with his sister in [facility] , on disability , wheelchair bound, PMD ; None Code status; Full ROS ; 10 point review of system negative except above Review of Systems - Review of Systems All systems: reviewed and no additional remarkable complaints except Past Patient History - Infectious Disease Hx of Infectious Diseases: None - Tetanus Immunizations Tetanus Immunization: Unknown - Past Medical History & Family History Past Medical History?: Yes - Past Social History Alcohol: Social - CARDIAC Hx Hypertension: Yes - PULMONARY Hx Pneumonia: Yes - NEUROLOGICAL Hx Seizures: Yes (ETOH related) - HEENT Hx HEENT Problems: Yes Other/Comment: Uses glasses for far/near sight. - RENAL Hx Chronic Kidney Disease: Yes - ENDOCRINE/METABOLIC Hx Endocrine Disorders: No - HEMATOLOGICAL/ONCOLOGICAL Hx Human Immunodeficiency Virus (HIV): No Hx Sickle Cell Disease: Yes - INTEGUMENTARY Hx Dermatological Problems: No Other/Comment: Hyper IgE syndrome - MUSCULOSKELETAL/RHEUMATOLOGICAL Hx Arthritis: Yes Hx Falls: Yes Hx Fractures: Yes (Left Femur FX/ Repair.) - GASTROINTESTINAL Hx Pancreatitis: Yes - GENITOURINARY/GYNECOLOGICAL Hx Sexually Transmitted Disorders: No - PSYCHIATRIC Hx Bipolar Disorder: Yes Hx Depression: Yes Hx Schizophrenia: Yes Hx Substance Use: Yes - SURGICAL HISTORY Hx Surgeries: Yes Hx Orthopedic Surgery: Yes Other/Comment: R kidney cancer removed September 2015 - ANESTHESIA Hx Anesthesia: Yes Hx Anesthesia Reactions: Yes Hx Malignant Hyperthermia: No Meds Allergies/Adverse Reactions: Allergies Allergy/AdvReac Type Severity Reaction Status Date / Time amoxicillin trihydrate Allergy RASH Verified 03/26/18 06:45 [From Augmentin] FISH Allergy RASH Verified 03/26/18 06:45 ketorolac tromethamine Allergy RASH Verified 03/26/18 06:45 [From Toradol] Penicillins Allergy RASH Verified 03/26/18 06:45 potassium clavulanate Allergy RASH Verified 03/26/18 06:45 [From Augmentin] - Medications Medications: Current Medications Clonidine HCl (Catapres) 0.1 mg PO Q8 [facility] Stop: 03/30/18 01:01 Last Admin: 03/27/18 16:14 Dose: 0.1 mg Divalproex Sodium (Depakote Dr(*Bid*)) 500 mg PO BID [facility] Last Admin: 03/27/18 16:14 Dose: 500 mg Enalapril Maleate (Vasotec) 20 mg PO DAILY [facility] Last Admin: 03/27/18 08:52 Dose: 20 mg Folic Acid (Folic Acid) 1 mg PO DAILY [facility] Last Admin: 03/27/18 08:52 Dose: 1 mg Loperamide HCl (Imodium) 2 mg PO Q4 PRN PRN Reason: After Loose Bowel Movement Loperamide HCl (Imodium) 2 mg PO QID PRN PRN Reason: Diarrhea Lorazepam (Ativan) 1 mg PO Q8 PRN PRN Reason: Anxiety Lorazepam (Ativan) 1 mg PO TID [facility] Last Admin: 03/27/18 16:13 Dose: 1 mg Multivitamins/Minerals (Therapeutic-M Tab) 1 tab PO DAILY [facility] Last Admin: 03/27/18 08:52 Dose: 1 tab Ondansetron HCl (Zofran Tab) 4 mg PO Q6 PRN PRN Reason: Nausea/Vomiting Oxycodone/Acetaminophen (Percocet 5/325 Mg Tab) 1 tab PO Q6 PRN PRN Reason: Pain, severe (8-10) Stop: 03/30/18 20:31 Quetiapine Fumarate (Seroquel) 300 mg PO Q12 [facility] Last Admin: 03/27/18 16:13 Dose: 300 mg Sertraline HCl (Zoloft) 200 mg PO DAILY [facility] Last Admin: 03/27/18 16:14 Dose: 200 mg Thiamine HCl (Vitamin B1 Tab) 100 mg PO DAILY [facility] Last Admin: 03/27/18 08:52 Dose: 100 mg Physical Exam - Constitutional Appears: Non-toxic, No Acute Distress Additional comments: tearful - Head Exam Head Exam: ATRAUMATIC, NORMAL INSPECTION, NORMOCEPHALIC - Eye Exam Eye Exam: EOMI, Normal appearance, PERRL Pupil Exam: NORMAL ACCOMODATION - ENT Exam ENT Exam: Mucous Membranes Moist, Normal Exam - Neck Exam Neck exam: Positive for: Full Rom, Normal Inspection - Respiratory Exam Respiratory Exam: Clear to Auscultation Bilateral, NORMAL BREATHING PATTERN. absent: Rales, Rhonchi, Wheezes - Cardiovascular Exam Cardiovascular Exam: REGULAR RHYTHM, RRR, +S1, +S2. absent: JVD - GI/Abdominal Exam GI & Abdominal Exam: Normal Bowel Sounds, Soft. absent: Distended, Guarding, Rebound, Tenderness - Rectal Exam Rectal Exam: Deferred - Extremities Exam Extremities exam: Positive for: normal capillary refill, normal inspection, pedal pulses present. Negative for: calf tenderness, pedal edema - Back Exam Back exam: NORMAL INSPECTION - Neurological Exam Neurological exam: Alert, CN II-XII Intact, Oriented x3 - Psychiatric Exam Psychiatric exam: Depressed, Flat Affect - Skin Skin Exam: Dry, Intact, Normal Color, Warm Results - Vital Signs Recent Vital Signs: Last Vital Signs Temp 98.4 F 03/27/18 15:56 Pulse 78 03/27/18 16:14 Resp 20 03/27/18 15:56 BP 135/73 03/27/18 16:14 Pulse Ox 99 03/26/18 13:45 - Labs Result Diagrams: 03/26/18 09:57 03/27/18 06:00 Labs: Laboratory Results - last 24 hr 03/27/18 03/27/18 03/27/18 06:00 06:00 06:00 Sodium 139 Potassium 3.4 L Chloride 106 Carbon Dioxide 27 Anion Gap 9 L BUN 16 Creatinine 0.6 L Est GFR ( Amer) > 60 Est GFR (Non-Af Amer) > 60 Random Glucose 89 Hemoglobin A1c 5.0 Calcium 9.1 Triglycerides 176 H D Cholesterol 151 LDL Cholesterol Direct 66 HDL Cholesterol 32 Thyroxine (T4) 8.27 TSH 3rd Generation 0.82 RPR Nonreactive Assessment & Plan - Assessment and Plan (Free Text) Assessment: 57 y/o male with PMH IGE syndrome, sickle Cell anemia, History of renal cell Ca s/p right nephrectomy, bilateral avascular necrosis of the hip, Wheelchair bound ,Bipolar disorder , schizophrenia,hypertension , history ETOH and drug abuse with multiple psychiatric admissions was brought in for crisis eval by the police for suicidal attempt and ideation. 1. Bipolar depression management as per psychiatry 2. ETOH and multiple drug abuse ETOH level 76 Withdrawal precautions Ativan PRN, Clonidine Thiamine , folic acid supplements Counselled patient 3 HTN resume home meds vasotec 20 mg PO QD 4. Avascular necrosis/ chronic pain syndrome Percoset PRN for severe pain ( received his list of medication from his pharmacy )
--- NOTE | 2018-03-28 08:26 | PCM.PYCHPN ---
Psychiatric Progress Note - Psychiatric Progress Note Patient seen today, length of contact: Pt evaluated, case discussed w/ team, chart reviewed Patient Chief Complaint: "I was having thoughts of hurting myself." Problems Identified/Issues Discussed: Patient continues to be depressed w/ intermittent suicidal ideation w/o current plan/intent. He reports opioid withdrawal symptoms, including diarrhea. He feels hopeless w/ poor sleep and appetite. +Intermittent AH Medication Change: No Medical Record Reviewed: Yes Consults ordered or reviewed: Medicine consult Mental Status Examination - Cognitive Function Orientation: Person, Place, Situation, Time Memory: Intact Attention: WNL Concentration: WNL Association: [facility] Fund of Knowledge: [facility] Decription of patient's judgement and insights: Improving I/J - Mood Mood: Depressed, Anxious - Affect Affect: Constricted, Depressed - Formal Thought Process Formal Thought Process: Hallucinations Psychotic Thoughts and Behaviors: +Intermittent AH - Suicidal Ideation Suicidal Ideation: Yes Plan: No current plan/intent - Homicidal Ideation Homicidal Ideation: No Goal/Treatment Plan - Goal/Treatment Plan Need for Continued Stay: Remain at risks for inpatient hospitalization, Severe depression anxiety, Discharge may exacerbated symptoms Progress Toward Problem(s) and Goals/Treatment Plan: Schizoaffective Disorder; Alcohol Use Disorder; Opioid Use Disorder -Psychoeducation provided on the dangers of substance abuse -Continue Zoloft, Seroquel and Depakote -Medicine consult -PT -Ativan to prevent ETOH withdrawal; will taper gradually -PRNs for opioid withdrawal symptoms -Disposition planning Estimated Date of D/C: 03/28/18
[2018-03-28] MEDS: Multivitamin With Minerals Tab PO SCH (08:41)
[2018-03-28] MEDS: Divalproex 500 mg DR(BID formulation) PO SCH ×2 (08:42→21:05)
--- NOTE | 2018-03-29 08:12 | PCM.PYCHPN ---
Psychiatric Progress Note - Psychiatric Progress Note Patient seen today, length of contact: Pt evaluated, case discussed w/ team, chart reviewed Patient Chief Complaint: "I was having thoughts of hurting myself." Problems Identified/Issues Discussed: Patient continues to be depressed w/ intermittent suicidal ideation w/o current plan/intent. He denies current AH. He reports opioid withdrawal symptoms, including diarrhea and chills. He feels hopeless w/ poor sleep and appetite. No ETOH withdrawal symptoms. Medication Change: Yes (Taper Ativan) Medical Record Reviewed: Yes Consults ordered or reviewed: Medicine consult Mental Status Examination - Cognitive Function Orientation: Person, Place, Situation, Time Memory: Intact Attention: WNL Concentration: WNL Association: WNL Fund of Knowledge: [facility] Decription of patient's judgement and insights: Improving I/J - Mood Mood: Depressed, Anxious - Affect Affect: Constricted, Depressed - Formal Thought Process Formal Thought Process: No Impairment Psychotic Thoughts and Behaviors: NO AH/VH/paranoia/delusions - Suicidal Ideation Suicidal Ideation: Yes - Homicidal Ideation Homicidal Ideation: No Goal/Treatment Plan - Goal/Treatment Plan Need for Continued Stay: Remain at risks for inpatient hospitalization, Severe depression anxiety, Discharge may exacerbated symptoms Progress Toward Problem(s) and Goals/Treatment Plan: Schizoaffective Disorder; Alcohol Use Disorder; Opioid Use Disorder -Psychoeducation provided on the dangers of substance abuse -Continue Zoloft, Seroquel and Depakote -Medicine consult -PT -Ativan to prevent ETOH withdrawal; will taper gradually -PRNs for opioid withdrawal symptoms -Disposition planning Estimated Date of D/C: 04/03/18
[2018-03-29] MEDS ORDERED: Nasal Spray(Ocean spray) NAS PRN (08:58)
[2018-03-29] MEDS: Multivitamin With Minerals Tab PO SCH (09:20)
[2018-03-29] MEDS: Divalproex 500 mg DR(BID formulation) PO SCH ×2 (09:22→17:25)
--- NOTE | 2018-03-30 08:16 | PCM.PYCHPN ---
Psychiatric Progress Note - Psychiatric Progress Note Patient seen today, length of contact: Pt evaluated, case discussed w/ team, chart reviewed Patient Chief Complaint: "I was having thoughts of hurting myself." Problems Identified/Issues Discussed: Patient continues to be depressed w/ intermittent suicidal ideation w/o current plan/intent and intermittent AH. We discussed continued titration of Seroquel and tapering of Ativan. He continues to report opioid withdrawal symptoms, including diarrhea and chills. He feels hopeless w/ poor sleep and appetite. No ETOH withdrawal symptoms. Medication Change: Yes (Taper Ativan; Increase Seroquel) Medical Record Reviewed: Yes Consults ordered or reviewed: Medicine consult Mental Status Examination - Cognitive Function Orientation: Person, Place, Situation, Time Memory: Intact Attention: WNL Concentration: WNL Association: WNL Fund of Knowledge: [facility] Decription of patient's judgement and insights: Improving I/J - Mood Mood: Depressed, Anxious - Affect Affect: Constricted, Depressed - Formal Thought Process Formal Thought Process: Hallucinations Psychotic Thoughts and Behaviors: +Intermittent AH - Suicidal Ideation Suicidal Ideation: Yes - Homicidal Ideation Homicidal Ideation: No Goal/Treatment Plan - Goal/Treatment Plan Need for Continued Stay: Remain at risks for inpatient hospitalization, Severe depression anxiety, Discharge may exacerbated symptoms Progress Toward Problem(s) and Goals/Treatment Plan: Schizoaffective Disorder; Alcohol Use Disorder; Opioid Use Disorder -Psychoeducation provided on the dangers of substance abuse -Continue Zoloft and Depakote -Increase Seroquel -Medicine consult -PT -Ativan to prevent ETOH withdrawal; will taper gradually -PRNs for opioid withdrawal symptoms -Disposition planning Estimated Date of D/C: 04/04/18
[2018-03-30] MEDS: Multivitamin With Minerals Tab PO SCH (09:41)
[2018-03-30] MEDS: Divalproex 500 mg DR(BID formulation) PO SCH ×2 (09:41→17:32)
--- NOTE | 2018-03-31 08:22 | PCM.PYCHPN ---
Psychiatric Progress Note - Psychiatric Progress Note Patient seen today, length of contact: Pt evaluated, case discussed w/ team, chart reviewed Patient Chief Complaint: "I was having thoughts of hurting myself." Problems Identified/Issues Discussed: No new events overnight. No signs/symptoms of ETOH withdrawal. Patient continues to be depressed w/ intermittent suicidal ideation w/o current plan/ intent. He denies acute AH/VH/paranoia/delusions. He continues to report opioid withdrawal symptoms, including diarrhea and chills. He feels hopeless w / poor sleep. No adverse effects to medications reported. Medication Change: Yes (Stop Ativan) Medical Record Reviewed: Yes Consults ordered or reviewed: Medicine consult Mental Status Examination - Cognitive Function Orientation: Person, Place, Situation, Time Memory: Intact Attention: WNL Concentration: WNL Association: WNL Fund of Knowledge: [facility] Decription of patient's judgement and insights: Improving I/J - Mood Mood: Depressed, Anxious - Affect Affect: Constricted, Depressed - Formal Thought Process Formal Thought Process: No Impairment Psychotic Thoughts and Behaviors: No Acute AH/VH/paranoia/delusions - Suicidal Ideation Suicidal Ideation: Yes - Homicidal Ideation Homicidal Ideation: No Goal/Treatment Plan - Goal/Treatment Plan Need for Continued Stay: Remain at risks for inpatient hospitalization, Severe depression anxiety, Discharge may exacerbated symptoms Progress Toward Problem(s) and Goals/Treatment Plan: Schizoaffective Disorder; Alcohol Use Disorder; Opioid Use Disorder -Psychoeducation provided on the dangers of substance abuse -Continue Zoloft and Depakote -Continue Seroquel -Medicine consult -PT -Stop Ativan -PRNs for opioid withdrawal symptoms -Disposition planning Estimated Date of D/C: 04/04/18
[2018-03-31] MEDS: Divalproex 500 mg DR(BID formulation) PO SCH ×2 (08:50→16:16)
[2018-03-31] MEDS: Multivitamin With Minerals Tab PO SCH (08:51)
[2018-04-01] MEDS: Divalproex 500 mg DR(BID formulation) PO SCH ×2 (08:55→16:26)
[2018-04-01] MEDS: Multivitamin With Minerals Tab PO SCH (08:56)
--- NOTE | 2018-04-01 09:59 | PCM.PYCHPN ---
Psychiatric Progress Note - Psychiatric Progress Note Patient seen today, length of contact: Pt evaluated, case discussed w/ team, chart reviewed Patient Chief Complaint: "I was having thoughts of hurting myself." Problems Identified/Issues Discussed: Patient continues to be depressed w/ intermittent AH, but denies SI. He continues to report opioid withdrawal symptoms, including diarrhea and muscle aches. He reports difficulty sleeping at night. No adverse effects to medications reported. Medication Change: Yes (Increase Seroquel) Medical Record Reviewed: Yes Consults ordered or reviewed: Medicine consult Mental Status Examination - Cognitive Function Orientation: Person, Place, Situation, Time Memory: Intact Attention: WNL Concentration: WNL Association: WNL Fund of Knowledge: [facility] Decription of patient's judgement and insights: Improving I/J - Mood Mood: Depressed, Anxious - Affect Affect: Constricted, Depressed - Formal Thought Process Formal Thought Process: Hallucinations Psychotic Thoughts and Behaviors: +Intermittent AH - Suicidal Ideation Suicidal Ideation: No - Homicidal Ideation Homicidal Ideation: No Goal/Treatment Plan - Goal/Treatment Plan Need for Continued Stay: Remain at risks for inpatient hospitalization, Severe depression anxiety, Discharge may exacerbated symptoms Progress Toward Problem(s) and Goals/Treatment Plan: Schizoaffective Disorder; Alcohol Use Disorder; Opioid Use Disorder -Psychoeducation provided on the dangers of substance abuse -Continue Zoloft and Depakote -Increase Seroquel -Medicine consult -PT -Disposition planning Estimated Date of D/C: 04/04/18
[2018-04-02 07:53] LABS: BASO # 0.1 K/uL (0.0-0.2); BASO % 0.9 % (0.0-2.0); EOS # 0.3 K/uL (0.0-0.7); EOS % 4.8 % (0.0-4.0); HEMOGLOBIN 13.9 g/dL (12.0-18.0); LYMPH # 1.8 K/uL (1.0-4.3); LYMPH % 26.3 % (20.0-40.0); MEAN CELL VOLUME 89.3 fl (80.0-94.0); MEAN CORPUSCULAR HEMOGLOBIN 29.8 pg (27.0-31.0); MEAN CORPUSCULAR HGB CONC 33.4 g/dL (33.0-37.0); MEAN PLATELET VOLUME 8.3 fl (7.2-11.7); MONO # 2.2 K/uL (0.0-0.8); MONO % 30.9 % (0.0-10.0); NEUT # 2.6 K/uL (1.8-7.0); NEUT % 37.1 % (50.0-75.0); NRBC % 0.1 % (0.0-0.0); PLATELET COUNT 187 K/uL (130-400); RBC 4.68 Mil/uL (4.40-5.90); RED CELL DISTRIBUTION WIDTH 14.6 % (11.5-14.5)
[2018-04-02 08:21] LABS: ALT/SGPT 26 U/L (21-72); AST/SGOT 22 U/L (17-59); BLOOD UREA NITROGEN 17 mg/dl (9-20); CALCIUM 9.9 mg/dL (8.4-10.2); GFR NON-AFRICAN AMERICAN > 60
[2018-04-02] MEDS: Divalproex 500 mg DR(BID formulation) PO SCH ×2 (08:58→16:29)
[2018-04-02] MEDS: Multivitamin With Minerals Tab PO SCH (08:59)
--- NOTE | 2018-04-02 09:01 | PCM.PYCHPN ---
Psychiatric Progress Note - Psychiatric Progress Note Patient seen today, length of contact: Pt evaluated, case discussed w/ team, chart reviewed Patient Chief Complaint: Depression Problems Identified/Issues Discussed: Patient reports that he continues to feel depressed and anxious, but that his mood is starting to improve. He denies acute AH/VH/SI/HI. He denies opioid withdrawal symptoms. No adverse effects to medications reported. Diagnostic Results: VPA 39.2 on 04/02/18 Medication Change: No Medical Record Reviewed: Yes Consults ordered or reviewed: Medicine consult Mental Status Examination - Cognitive Function Orientation: Person, Place, Situation, Time Memory: Intact Attention: WNL Concentration: WNL Association: WNL Fund of Knowledge: [facility] Decription of patient's judgement and insights: Improving I/J - Mood Mood: Depressed, Anxious - Affect Affect: Constricted - Speech Speech: Appropriate - Formal Thought Process Formal Thought Process: No Impairment Psychotic Thoughts and Behaviors: No AH/VH/paranoia/delusions - Suicidal Ideation Suicidal Ideation: No - Homicidal Ideation Homicidal Ideation: No Goal/Treatment Plan - Goal/Treatment Plan Need for Continued Stay: Remain at risks for inpatient hospitalization, Severe depression anxiety, Discharge may exacerbated symptoms Progress Toward Problem(s) and Goals/Treatment Plan: Schizoaffective Disorder; Alcohol Use Disorder; Opioid Use Disorder -Psychoeducation provided on the dangers of substance abuse -Continue Zoloft and Depakote (VPA 39.2 on 04/02/18) -Continue Seroquel -Medicine consult -PT -Disposition planning Estimated Date of D/C: 04/04/18
[2018-04-02 09:14] LABS: EOSINOPHIL 2 % (0-7); LYMPHOCYTE 36 % (20-50); MONOCYTE 22 % (0-10); NEUTROPHIL 40 % (42-75); PLATELET ESTIMATE NORMAL (NORMAL); TOTAL CELLS COUNTED 100
--- NOTE | 2018-04-03 08:42 | PCM.PYCHPN ---
Psychiatric Progress Note - Psychiatric Progress Note Patient seen today, length of contact: Pt evaluated, case discussed w/ team, chart reviewed Patient Chief Complaint: Depression Problems Identified/Issues Discussed: Patient reports that his mood is improving. He denies acute AH/VH/SI/HI. Psychoeducation provided on the dangers of alcohol and opioid use and how it can affect mental health. Psychoeducation provided on the importance of compliance with treatment and medications. No adverse effects to medications reported. Diagnostic Results: VPA 39.2 on 04/02/18 Medication Change: No Medical Record Reviewed: Yes Consults ordered or reviewed: Medicine consult Mental Status Examination - Cognitive Function Orientation: Person, Place, Situation, Time Memory: Intact Attention: WNL Concentration: WNL Association: WNL Fund of Knowledge: [facility] Decription of patient's judgement and insights: Improving I/J - Mood Mood: Depressed - Affect Affect: Constricted - Speech Speech: Appropriate - Formal Thought Process Formal Thought Process: No Impairment Psychotic Thoughts and Behaviors: No AH/VH/paranoia/delusions - Suicidal Ideation Suicidal Ideation: No - Homicidal Ideation Homicidal Ideation: No Goal/Treatment Plan - Goal/Treatment Plan Need for Continued Stay: Discharge may exacerbated symptoms Progress Toward Problem(s) and Goals/Treatment Plan: Schizoaffective Disorder; Alcohol Use Disorder; Opioid Use Disorder; Patient is improving clinically, will likely discharge tomorrow. -Psychoeducation provided on the dangers of substance abuse -Continue Zoloft and Depakote (VPA 39.2 on 04/02/18) -Continue Seroquel -Medicine consult -Disposition planning Estimated Date of D/C: 04/04/18
[2018-04-03] MEDS: Divalproex 500 mg DR(BID formulation) PO SCH ×2 (09:19→18:08)
[2018-04-03] MEDS: Multivitamin With Minerals Tab PO SCH (09:19)
[2018-04-04 06:12] VITALS: BP 120/80; PULSE 87; RESP 19; TEMP 98.1
--- NOTE | 2018-04-04 08:28 | PCM.PYCHDC ---
Mental Status Examination - Mental Status Examination Orientation: Person, Place, Situation, Time Memory: Intact Mood: Neutral Affect: Broad Speech: Appropriate Attention: WNL Concentration: WNL Association: WNL Fund of Knowledge: WNL Formal Thought Process: No Impairment Description of patient's judgement and insight: Fair I/J Psychotic Thoughts and Behaviors: No AH/VH/paranoia/delusions Suicidal Ideation: No Current Homicidal Ideation?: No Discharge Summary - Discharge Note Reason for Hospitalization: HPI: 57 yo AAM, , unemployed, on disability and living with his sister and 2 nieces, aged 17 and 19, currently refusing to let designer/writer call his sister, presents w/ worsening depression w/ intermittent suicidal thoughts to jump in front of a train, w/ intermittent AH, in the context of alcohol, opioid and benzo abuse. Denies delusions/paranoia. +Hopelessness. +Sleep/appetite disturbances. PMHx: Sickle cell anemia, AVN both hips, Hyper IgE syndrome, S/p R nephrectomy secondary to renal cell carcinoma PPHx: Multiple past psychiatric hospitalization for depression, etoh/opioid abuse, most recent diagnosis: schizoaffective disorder. Reports compliance w/ Zoloft, Depakote and Seroquel. FHx: Brother commited suicide SHx: Lives w/ sister and nieces. . On disability; drinks 2 pints of rum daily; used 4 bags of heroin per day; smokes 1ppd ALL: Augmentin, Ketorolac, PCN, tomato Consultations:: List each consultation separately and include: 1. Reason for request. 2. Findings. 3. Follow-up Consultations: Medicine consult Summary of Hospital Course include:: 1. Description of specific treatment plan utilized for patients during their course of treatmen. 2. Summarize the time- course for resolution of acute symptoms and/or regressed behaviors. 3. Describe issues identified and worked on during hospitalization. 4. Describe medication utilized. 5. Describe medical problems identified and treated. 6. Reassessment of suicide risk Summary of Hospital Course: Patient admitted to the psychiatry unit. Individual and group therapy were provided. Patient was treated for opioid and alcohol withdrawal and safely tapered off Ativan. He was stabilized on Depakote 500 mg PO BID, Seroquel 300 mg PO AM/ 400 mg PO HS and Zoloft 200 mg PO Daily. Psychoeducation provided on the dangers of drug and etoh abuse. Patient denies acute depression/anxiety/psychosis/SI/HI. He is psychiatrically stable for discharge at this time. - Diagnosis (1) Schizoaffective disorder Current Visit: Yes Status: Chronic (2) Alcohol abuse Current Visit: No Status: Chronic (3) Opioid abuse Current Visit: Yes Status: Acute - Final Diagnosis (DSM 5) Condition upon Discharge: STABLE DSM 5: Schizoaffective Disorder; Alcohol Use Disorder; Opioid Use Disorder Disposition: HOME/ ROUTINE Follow-up Treatment Plan: Schizoaffective Disorder; Alcohol Use Disorder; Opioid Use Disorder -Psychoeducation provided on the dangers of substance abuse -Continue Zoloft and Depakote (VPA 39.2 on 04/02/18) -Continue Seroquel -Medicine consult -Discharge to home Prescriptions/Medication Reconciliation: Quetiapine Fumarate [Seroquel] 400 mg PO HS #30 tab - Smoking Cessation Smoking Cessation Medication prescribed: No Reason for not providing: Patient declined - Antipsychotic Medications Pt discharged on 2 or more routine antipsychotic medications: No
[2018-04-04] MEDS: Divalproex 500 mg DR(BID formulation) PO SCH (08:44)
[2018-04-04] MEDS: Multivitamin With Minerals Tab PO SCH (08:46)
[2018-04-04] MEDS ORDERED: Nasal Spray(Ocean spray) NAS PRN (12:03)
--- NOTE | 2018-04-05 10:15 | PCM.BM ---
Treatment Plan Problems - Problems identified on initial assessmt Hopelessness/Helplessness Date Initiated: 03/27/18 Time Initiated: 00:15 Assessment reference: NA Status: Active Altered Sleeping Patterns Date Initiated: 03/27/18 Time Initiated: 00:15 Assessment reference: NA Status: Active Medication nonadherence Date Initiated: 03/27/18 Time Initiated: 00:16 Assessment reference: NA Status: Active Self Care Deficit Date Initiated: 03/27/18 Time Initiated: 00:16 Assessment reference: NA Status: Active Suicidal Ideation Date Initiated: 03/27/18 Time Initiated: 00:17 Assessment reference: NA Status: Active Defensive Coping Date Initiated: 03/27/18 Time Initiated: 00:17 Assessment reference: NA Status: Active Treatment assets and liabiliti Patient Assests: cooperative, self-reliant, ADL independent, negotiates basic needs, cognitively intact Patient Liabilities: live alone, financial problems, poor support system, substance abuse, medical problems - Milieu Protocol Maintain good personal hygiene: every shift Encourage regular showers, every shift Remind patient to perform daily oral care, every shift Assist patient to perform ADL's Maintain personal safety: daily Educate patient to report safety concerns to staff, daily Monitor environment for contraband/sharps Medication safety: Monitor for expected outcome, potential side effects: daily, Assess barriers to learning: daily, Assess readiness for medication education: daily Milieu Narrative: Schizoaffective Disorder; Alcohol Use Disorder; Opioid Use Disorder -Psychoeducation provided on the dangers of substance abuse -Continue Zoloft and Depakote (VPA 39.2 on 04/02/18) -Continue Seroquel -Medicine consult -Discharge to home Family Contact Family involvement: Famliy/SO not involved Family contact: Patient declines to allow family contact at present Family contact name: Pt denied. Family contact comment: Pt has a sister that he reportedly resides with in [place], yet is adamant that staff not contact her. - Goals for Treatment Patient goals for treatment: Pt reported he would like withdrawl syptoms to be resolved and his depression and hallucinations decreased. Discharge/Continuing Care - Education Needs Education Needs: Patient Medication, Patient Diagnosis/Disease Process, Patient Coping Skills, Patient Community resources, Patient Aftercare Safety Plan - Discharge Discharge Criteria: Tolerates medication w/o severe side effects, Free of Suicidal thoughts, Free of agitation, Normal sleep pattern, Reduction of target symptoms Discharge to:: Home - Treatment Team Participation Patient/Family/SO Statement: Schizoaffective Disorder; Alcohol Use Disorder; Opioid Use Disorder -Psychoeducation provided on the dangers of substance abuse -Continue Zoloft and Depakote (VPA 39.2 on 04/02/18) -Continue Seroquel -Medicine consult -Discharge to home Discussed with Family/SO: No Was Patient/Family/SO present at Treatment Team Meeting: Yes Treatment Plan Review Patient participation: Yes Family/SO/Caregiver participation: No Additional Comments: LATE ENTRY FROM 04/03/2018: Pt seen and discussed in team meeting. Pt's progress and bx on the unit reviewed. Pt reported feeling "alright." Pt reported that his depression is less. Pt's medications reviewed and discussed. Pt's discharge for 04/04/18 reviewed and pt verbalized agreement. Pt requested to be linked to [facility] for transportation back to home. Pt reported having no concerns and/or questions for team. Freezer Person informed pt of the after care appointment that was scheduled with [facility], pt verbalized understanding of same. - Problem Hopelessness/Helplessness Date Initiated: 03/26/18 Time Initiated: 00:15 Progress toward outcomes: improved Altered Sleeping Patterns Date Initiated: 03/26/18 Time Initiated: 00:15 Progress toward outcomes: resolved Medication nonadherence Date Initiated: 03/26/18 Time Initiated: 00:16 Progress toward outcomes: resolved Self Care Deficit Date Initiated: 03/26/18 Time Initiated: 00:16 Progress toward outcomes: resolved Suicidal Ideation Date Initiated: 03/26/18 Time Initiated: 00:17 Progress toward outcomes: resolved Defensive Coping Date Initiated: 03/26/18 Time Initiated: 00:17 Progress toward outcomes: resolved - Discharge / Continuing Care Discharge to:: Home Behavioral Health Services: Other (Medication Management) Health Needs: Follow up care/test, Doctor appointments, Special equipment, Nutritional, Medications/Rx, Educational, Alcohol/Drug treatment
== END 2018-04-04 12:00 | disposition home or self-care (01) | DRG 430 ==
LOC: H.ER 06:27 → H.ERHOLD 12:21 → H.STEP 14:19
PROVIDERS: ADMIT Psychiatry & Neurology Psychiatry; ATTEND Psychiatry & Neurology Psychiatry
PROC: GZ51ZZZ Individual Psychotherapy, Behavioral (ICD-10-PCS; principal; 2018-03-26)
DX: F25.9 Schizoaffective disorder, unspecified (principal); N18.9 Chronic kidney disease, unspecified; D82.4 Hyperimmunoglobulin E [IgE] syndrome; R56.9 Unspecified convulsions; D57.1 Sickle-cell disease without crisis; E11.22 Type 2 diabetes mellitus with diabetic chronic kidney disease; F14.10 Cocaine abuse, uncomplicated; F11.10 Opioid abuse, uncomplicated; F31.9 Bipolar disorder, unspecified; I12.9 Hypertensive chronic kidney disease with stage 1 through stage 4 chronic kidney disease, or unspecified chronic kidney disease; F60.9 Personality disorder, unspecified; G89.4 Chronic pain syndrome; M87.9 Osteonecrosis, unspecified; R45.851 Suicidal ideations; Z85.528 Personal history of other malignant neoplasm of kidney; Z87.01 Personal history of pneumonia (recurrent); Z87.442 Personal history of urinary calculi; Z88.6 Allergy status to analgesic agent; Z90.5 Acquired absence of kidney; Z99.3 Dependence on wheelchair; F41.9 Anxiety disorder, unspecified; M19.90 Unspecified osteoarthritis, unspecified site; Z79.899 Other long term (current) drug therapy; G47.9 Sleep disorder, unspecified; F10.10 Alcohol abuse, uncomplicated; F17.210 Nicotine dependence, cigarettes, uncomplicated

== ENCOUNTER 2018-07-14 02:16 | Emergency (ER) | payer MEDICAID ==
[2018-07-14 02:16] VITALS: BMI 29.9
[2018-07-14 02:41] VITALS: O2SAT 97
--- NOTE | 2018-07-14 03:08 | ED PDOC ---
HPI: Psych/Substance Abuse Time Seen by Provider: 07/14/18 02:37 Chief Complaint (Nursing): Psychiatric Evaluation Chief Complaint (Provider): Psychiatric Evaluation History Per: Patient Current Symptoms Are (Timing): Still Present Additional Complaint(s): 57 year old male with pmHx of depression, bipolar disorder, and HTN, presents to ED for evaluation of depression and suicidal ideation. Patient additional states that he hears voices that "tells him to kill himself" and that it is "usually hard for him around this time of year". He reports a Hx of suicide in his family (brother) and last used heroin a few hours ago. Of note, patient recently signed out AMA at [facility] approximately 1.5 hours [employer]. PCP: Dr. Luis Felipe Redmond Past Medical History Reviewed: Historical Data, Nursing Documentation, Vital Signs Vital Signs: Last Vital Signs Temp 98.0 F 07/14/18 02:36 Pulse 108 H 07/14/18 02:36 Resp 18 07/14/18 02:36 BP 101/66 07/14/18 02:36 Pulse Ox 97 07/14/18 02:36 - Medical History PMH: Anxiety, Arthritis, Bipolar Disorder, Depression, Fractures (Left Femur FX/ Repair.), HTN, Kidney Stones, Pancreatitis, Personality Disorder, Pneumonia, Chronic Kidney Disease, Schizophrenia, Seizures (ETOH related), Sickle Cell Disease Denies: Diabetes, Hepatitis, HIV, Sexually Transmitted Disease - Surgical History Other surgeries: hip replacement - Family History Family History: States: Unknown Family Hx - Social History Drugs: Opiates (heroin) - Immunization History Hx Tetanus Toxoid Vaccination: Yes Hx Influenza Vaccination: Yes Hx Pneumococcal Vaccination: Yes - Home Medications Home Medications: Ambulatory Orders Medication Instructions Recorded Sertraline [Zoloft] 200 mg PO DAILY #60 tab 04/01/17 Enalapril Maleate [Vasotec] 20 mg PO DAILY #30 tab 02/23/18 Folic Acid 1 mg PO DAILY tab 04/03/18 Multimineral/Multivitamin 1 tab PO DAILY tab 04/03/18 [Therapeutic-M Tab] QUEtiapine [SEROquel] 300 mg PO DAILY tab 04/03/18 Quetiapine Fumarate [Seroquel] 400 mg PO HS #30 tab 04/03/18 - Allergies Allergies/Adverse Reactions: Allergies Allergy/AdvReac Type Severity Reaction Status Date / Time amoxicillin trihydrate Allergy RASH Verified 07/14/18 02:36 [From Augmentin] FISH Allergy RASH Verified 07/14/18 02:36 ketorolac tromethamine Allergy RASH Verified 07/14/18 02:36 [From Toradol] Penicillins Allergy RASH Verified 07/14/18 02:36 potassium clavulanate Allergy RASH Verified 07/14/18 02:36 [From Augmentin] Review of Systems ROS Statement: Except As Marked, All Systems Reviewed And Found Negative Psych: Positive for: Depression, Suicidal ideation, Other (auditory hallucinati on) Physical Exam - Reviewed Nursing Documentation Reviewed: Yes Vital Signs Reviewed: Yes - Physical Exam Appears: Positive for: Non-toxic, No Acute Distress Head Exam: Positive for: ATRAUMATIC, NORMAL INSPECTION, NORMOCEPHALIC Skin: Positive for: Normal Color Eye Exam: Positive for: Normal appearance, EOMI, PERRL ENT: Positive for: Normal ENT Inspection Neck: Positive for: Normal Cardiovascular/Chest: Positive for: Regular Rate, Rhythm Respiratory: Positive for: Normal Breath Sounds. Negative for: Respiratory Distress Gastrointestinal/Abdominal: Positive for: Normal Exam Extremity: Positive for: Normal ROM (upper/lower) Neurologic/Psych: Positive for: Alert, Oriented, Mood/Affect (flat). Negative for: Motor/Sensory Deficits - ECG O2 Sat by Pulse Oximetry: 97 (RA) Pulse Ox Interpretation: Normal Medical Decision Making Medical Decision Making: Initial Impression: 57 year old male with suicidal ideation in setting of bipolar disorder and known substance abuse. Initial Plan: * Crisis evaluation * 1:1 OBS Time: 523 --Upon crisis evaluation, patient is medically stable for discharge home, as per Dr. Dejesus. Counseling was provided and all questions were answered regarding diagnosis. There is agreement to discharge plan. Return if symptoms persist or worsen. Clinical Impression: Substance induced mood disorder Scribe Attestation: Documented by Albina Sloan, acting as a scribe for Calixto Nichole MD. Provider Scribe Attestation: All medical record entries made by the Scribe were at my direction and personally dictated by me. I have reviewed the chart and agree that the record accurately reflects my personal performance of the history, physical exam, medical decision making, and the department course for this patient. I have also personally directed, reviewed, and agree with the discharge instructions and disposition. Disposition - Clinical Impression Clinical Impression: Substance induced mood disorder - Patient ED Disposition Is Patient to be Admitted: No Counseled Patient/Family Regarding: Studies Performed, Diagnosis - Disposition Disposition: Routine/Home Disposition Time: 05:24 Condition: STABLE Instructions: Opioid Use Disorder Forms: [employer] (Samoan)
--- NOTE | 2018-07-14 07:10 | ED PDOC ---
- ECG O2 Sat by Pulse Oximetry: 97 (RA) Medical Decision Making Medical Decision Making: At time of discharge, pt admitted to with plan. Will clear for psych admission Medically stable for psychiatric admission Disposition - Clinical Impression Clinical Impression: Substance induced mood disorder, Major depression - POA Present On Arrival: None - Disposition Disposition: Admitted as In-Patient Disposition Time: 07:10 Condition: FAIR Instructions: Opioid Use Disorder Forms: [employer] (Turkmen)
--- NOTE | 2018-07-14 08:04 | RAD ---
Date of service: 07/14/2018 HISTORY: cough COMPARISON: Frontal chest radiograph 03/26/2018. FINDINGS: LUNGS: No active pulmonary disease. PLEURA: No significant pleural effusion identified, no pneumothorax apparent. CARDIOVASCULAR: Calcific atherosclerotic changes are seen related to the thoracic aorta. Normal cardiac size. No pulmonary vascular congestion. OSSEOUS STRUCTURES: No significant abnormalities. VISUALIZED UPPER ABDOMEN: Normal. OTHER FINDINGS: None. IMPRESSION: No interval acute cardiopulmonary disease appreciated.
[2018-07-14 08:19] VITALS: BP 110/69; PULSE 91; RESP 19; TEMP 98
--- NOTE | 2018-07-14 23:05 | CARD ---
APPROVED REPORT Date of service: 07/14/2018 EKG Measurement Heart [id number] <Conclusion> Normal sinus rhythm Voltage criteria for left ventricular hypertrophy Abnormal ECG
== END 2018-07-14 08:35 | disposition short-term general hospital (02) ==
LOC: H.ER 02:16 → H.ERHOLD 07:11 → UNDOADMIN 07:11 → UNDODISIN 08:35
DX: F39 Unspecified mood [affective] disorder (principal)